=== PATIENT | male | born 1980 | race Caucasian/White ===

== ENCOUNTER 2024-01-17 14:25 | Emergency (ER) | payer SELFPAY ==
[~2024-01-17] VITALS: Ht 182.9 cm; Wt 79.5 kg
[2024-01-17 14:29] VITALS: BP 127/93; PULSE 117; RESP 18; TEMP 99.6; O2SAT 94
[2024-01-17 16:39] LABS: BASOPHILS % (AUTO) 0.2 % (0-1); EOSINOPHILS # (AUTO) 0.1 X10'3 (0-0.9); HEMATOCRIT 44.8 % (42.0-52.0); HEMOGLOBIN 15.5 g/dl (14.0-17.9); LYMPHOCYTES # (AUTO) 1.2 X10'3 (1.1-4.8); LYMPHOCYTES % (AUTO) 14.4 % (21-51); MEAN CORPUSCULAR HEMOGLOBIN 31.2 PG (27.0-31.0); MEAN CORPUSCULAR HGB CONC 34.5 g/dL (33.0-36.5); MEAN CORPUSCULAR VOLUME 90.3 FL (78-98); MEAN PLATELET VOLUME 7.2 FL (7.4-10.4); MONOCYTES # (AUTO) 0.8 X10'3 (0-0.9); MONOCYTES % (AUTO) 9.6 % (2-12); NEUTROPHILS # (AUTO) 6.5 X10'3 (1.8-7.7); NEUTROPHILS % (AUTO) 74.8 % (42-75); PLATELET COUNT 222 X10'3 (140-440); RED BLOOD COUNT 4.96 X10'6 (4.70-6.10); WHITE BLOOD COUNT 8.6 X10'3 (4.5-11.0)
[2024-01-17 16:53] LABS: ALBUMIN 4.1 G/DL (3.4-5.0); ANION GAP 8 (8-16); BLOOD UREA NITROGEN 9 MG/DL (7-18); BUN/CREATININE RATIO 9.9 (10.0-20.0); CALCIUM 9.2 MG/DL (8.5-10.1); CHLORIDE 106 MMOL/L (99-107); CREATININE 0.91 MG/DL (0.60-1.10); GLUCOSE 102 MG/DL (70-104); SODIUM 140 MMOL/L (135-145); TOTAL CARBON DIOXIDE 26.3 MMOL/L (24-32); eCRCL 114 ML/MIN; eGFR > 90 ML/MIN
[2024-01-17 16:57] LABS: ETHANOL < 10 MG/DL (<10)
== END 2024-01-17 19:39 | disposition left against medical advice (07) ==
LOC: ER 14:25
DX: Z13.30 Encounter for screening examination for mental health and behavioral disorders, unspecified (principal); Z53.21 Procedure and treatment not carried out due to patient leaving prior to being seen by health care provider
CPT/HCPCS: 36415; 80048; 80320; 85025

== ENCOUNTER 2024-01-18 22:54 | Inpatient (IN) | payer MEDICARE, MEDICAID ==
[~2024-01-18] VITALS: Ht 185.4 cm; Wt 76.5 kg
[2024-01-19 01:56] LABS: BASOPHILS % (AUTO) 0.5 % (0-1); EOSINOPHILS # (AUTO) 0.3 X10'3 (0-0.9); EOSINOPHILS % (AUTO) 3.3 % (0-6); HEMATOCRIT 41.7 % (42.0-52.0); HEMOGLOBIN 14.5 g/dl (14.0-17.9); LYMPHOCYTES # (AUTO) 1.7 X10'3 (1.1-4.8); LYMPHOCYTES % (AUTO) 20.5 % (21-51); MEAN CORPUSCULAR HEMOGLOBIN 31.3 PG (27.0-31.0); MEAN CORPUSCULAR HGB CONC 34.9 g/dL (33.0-36.5); MEAN CORPUSCULAR VOLUME 89.7 FL (78-98); MEAN PLATELET VOLUME 7.3 FL (7.4-10.4); MONOCYTES # (AUTO) 0.8 X10'3 (0-0.9); MONOCYTES % (AUTO) 10.5 % (2-12); NEUTROPHILS # (AUTO) 5.3 X10'3 (1.8-7.7); NEUTROPHILS % (AUTO) 65.2 % (42-75); PLATELET COUNT 209 X10'3 (140-440); RED BLOOD COUNT 4.65 X10'6 (4.70-6.10); RED CELL DISTRIBUTION WIDTH 13.1 % (11.5-14.5); WHITE BLOOD COUNT 8.1 X10'3 (4.5-11.0)
[2024-01-19 02:05] LABS: ALBUMIN 3.7 G/DL (3.4-5.0); ANION GAP 3 (8-16); BLOOD UREA NITROGEN 10 MG/DL (7-18); BUN/CREATININE RATIO 11.5 (10.0-20.0); CALCIUM 8.8 MG/DL (8.5-10.1); CHLORIDE 105 MMOL/L (99-107); CREATININE 0.87 MG/DL (0.60-1.10); ETHANOL < 10 MG/DL (<10); GLUCOSE 114 MG/DL (70-104); POTASSIUM 3.4 MMOL/L (3.5-5.1); SODIUM 137 MMOL/L (135-145); THYROID STIMULATING HORMONE 2.19 ulU/ml (0.34-4.50); TOTAL CARBON DIOXIDE 28.6 MMOL/L (24-32); eCRCL 118 ML/MIN; eGFR > 90 ML/MIN
[2024-01-19] MEDS ORDERED: HYDR-3927 PO (02:07)
[2024-01-19] MEDS ORDERED: PALI117D IM (02:07)
[2024-01-19] MEDS: potassium Cl 20 mEq SR tablet PO STA (04:06)
[2024-01-19 04:41] LABS: URINE AMPHETAMINE SCREEN NEGATIVE (Neg); URINE BARBITUATE SCREEN NEGATIVE (Neg); URINE BENZODIAZEPINES SCREEN NEGATIVE (Neg); URINE CANNABINOID SCREEN NEGATIVE (Neg); URINE COCAINE SCREEN NEGATIVE (Neg); URINE METHADONE SCREEN NEGATIVE (Neg); URINE OPIATE SCREEN NEGATIVE (Neg); URINE PHENCYCLIDINE SCREEN NEGATIVE (Neg)
[2024-01-19 11:16] LABS: BILIRUBIN,URINE NEGATIVE (Neg); CLARITY,URINE CLEAR (Clear); COLOR,URINE YELLOW (Yellow); GLUCOSE, URINE NEGATIVE (Neg); KETONES,URINE NEGATIVE (Neg); LEUKOCYTE ESTERASE ,URINE NEGATIVE (Neg); NITRITES, URINE NEGATIVE (Neg); OCCULT BLOOD,URINE NEGATIVE (Neg); PROTEIN,URINE NEGATIVE (Neg); UROBILINOGEN,URINE 0.2 E.U/dL (0.2-1.0)
[2024-01-19 11:25] LABS: UA COLLECTION TYPE CLN CATCH MIDSTREAM
[2024-01-19] MEDS ORDERED: magnesium hydroxide 30ml (MOM) UD suspension PO PRN (19:40)
[2024-01-19] MEDS ORDERED: loperamide 2mg capsule PO PRN (19:40)
[2024-01-19] MEDS ORDERED: mag hydrox/Alum hydrox/simeth 30ml oral suspension PO PRN (19:40)
[2024-01-19] MEDS ORDERED: NICOTINE POLACRILEX 2 MG LOZENGE BC PRN (19:40)
[2024-01-19] MEDS ORDERED: acetaminophen 325mg tablet PO PRN (19:40)
[2024-01-19 20:29] VITALS: BP 119/76; PULSE 84; RESP 16; TEMP 98.5; O2SAT 98
[2024-01-19 21:28] VITALS: RESP 16; O2SAT 98
[2024-01-20] MEDS: hydrOXYzine 25 MG tablet PO PRN (04:39)
[2024-01-20] MEDS: OLANZapine 5mg rapidly disint. tablet PO ONE (04:39)
[2024-01-20 07:00] VITALS: RESP 16; O2SAT 94
[2024-01-20 08:00] VITALS: BP 131/88; PULSE 85; RESP 16; TEMP 97.9; O2SAT 94
[2024-01-20] MEDS: nicotine 21mg patch - 24 hr TD SCH (08:00)
[2024-01-20] MEDS: acetaminophen 325mg tablet PO PRN (08:21)
[2024-01-20 09:51] LABS: HEMOGLOBIN A1C 4.8 % (4.5-6.2)
[2024-01-20 09:52] LABS: CHOL/HDL RATIO 4.1 (0.00-4.99); CHOLESTEROL 136 MG/DL (0-200); HDL CHOLESTEROL 33 MG/DL (35-60); LDL CHOLESTEROL 88 MG/DL (50-100); TRIGLYCERIDES 143 MG/DL (20-135)
[2024-01-20] MEDS: LORazepam 1 MG tablet PO STA (10:57)
[2024-01-20] MEDS: OLANZapine 5mg rapidly disint. tablet PO STA (10:57)
[2024-01-20 14:10] LABS: ALBUMIN 3.2 G/DL (3.4-5.0); ANION GAP 8 (8-16); BLOOD UREA NITROGEN 15 MG/DL (7-18); BUN/CREATININE RATIO 16.3 (10.0-20.0); CALCIUM 8.7 MG/DL (8.5-10.1); CHLORIDE 107 MMOL/L (99-107); CREATININE 0.92 MG/DL (0.60-1.10); GLUCOSE 92 MG/DL (70-104); POTASSIUM 3.6 MMOL/L (3.5-5.1); SODIUM 141 MMOL/L (135-145); TOTAL CARBON DIOXIDE 25.7 MMOL/L (24-32); eCRCL 111 ML/MIN; eGFR 89 ML/MIN
[2024-01-20 19:00] VITALS: RESP 15; O2SAT 92
[2024-01-20 19:34] VITALS: BP 107/66; PULSE 90; RESP 15; TEMP 98.7; O2SAT 92
[2024-01-20] MEDS: risperiDONE 0.5mg tablet PO SCH (20:28)
[2024-01-21 07:00] VITALS: RESP 18; O2SAT 95
[2024-01-21 08:00] VITALS: BP 123/83; PULSE 84; RESP 18; TEMP 97.5; O2SAT 95
[2024-01-21] MEDS ORDERED: paliperidone palmitate 156 mg/ml inj.**IM only IM ONE (18:05)
[2024-01-21 19:00] VITALS: RESP 18; O2SAT 95
[2024-01-21 20:00] VITALS: BP 123/83; PULSE 80; RESP 18; TEMP 97.2; O2SAT 96
[2024-01-21] MEDS: paliperidone palmitate inj 234 MG/1.5 ML SYRINGE IM ONE (21:44)
[2024-01-22 07:00] VITALS: BP 114/78; PULSE 90; RESP 16; TEMP 97.8; O2SAT 96
[2024-01-22] MEDS: LORazepam 0.5 MG tablet PO PRN (10:37)
[2024-01-22 10:40] VITALS: RESP 16; O2SAT 96
[2024-01-22 20:30] VITALS: BP 131/87; PULSE 80; RESP 18; TEMP 97.8; O2SAT 96
[2024-01-23 07:00] VITALS: BP 120/76; PULSE 80; RESP 20; TEMP 97.5; O2SAT 97
[2024-01-23] MEDS: PALIPERIDONE 3 MG TAB.ER.24 PO SCH (07:30)
[2024-01-23 20:00] VITALS: BP 115/77; PULSE 84; RESP 18; TEMP 97.9; O2SAT 93
[2024-01-23] MEDS: risperiDONE 0.5mg tablet PO SCH (20:26)
[2024-01-24 07:00] VITALS: BP 122/69; PULSE 67; RESP 16; RESP 18; TEMP 98.2; O2SAT 98
[2024-01-24] MEDS: ibuprofen tablet 400 MG TABLET PO SCH (12:12)
[2024-01-24 19:00] VITALS: BP 115/68; PULSE 83; RESP 14; TEMP 99.6; O2SAT 95
[2024-01-25 07:00] VITALS: RESP 16; O2SAT 96
[2024-01-25 08:00] VITALS: BP 124/78; PULSE 78; RESP 16; TEMP 98; O2SAT 96
[2024-01-25 19:00] VITALS: RESP 14; O2SAT 97
[2024-01-25 20:00] VITALS: BP 115/74; PULSE 66; RESP 14; TEMP 97.7; O2SAT 97
[2024-01-26 07:00] VITALS: RESP 16; O2SAT 96
[2024-01-26 08:00] VITALS: BP 98/49; PULSE 59; RESP 16; TEMP 97.8; O2SAT 96
[2024-01-26 19:00] VITALS: RESP 16; O2SAT 95
[2024-01-26 19:30] VITALS: BP 121/72; PULSE 55; RESP 16; TEMP 99; O2SAT 95
[2024-01-26] MEDS: risperiDONE 0.5mg tablet PO SCH (20:51)
[2024-01-27 07:00] VITALS: RESP 16; O2SAT 96
[2024-01-27 08:00] VITALS: BP 115/75; PULSE 62; RESP 16; TEMP 99; O2SAT 95
[2024-01-27 19:00] VITALS: RESP 15; O2SAT 93
[2024-01-27 19:22] VITALS: BP 118/76; PULSE 77; RESP 15; TEMP 98; O2SAT 93
[2024-01-27] MEDS: risperiDONE 2mg tablet PO SCH (20:18)
[2024-01-28 07:29] VITALS: RESP 16; O2SAT 96
[2024-01-28 08:00] VITALS: BP 127/89; PULSE 79; RESP 18; TEMP 98.2; O2SAT 95
[2024-01-28] MEDS: risperiDONE 0.5mg tablet PO PRN (14:05)
[2024-01-28 19:00] VITALS: RESP 16; O2SAT 96
[2024-01-28 20:00] VITALS: BP 148/87; PULSE 80; RESP 20; TEMP 97.4; O2SAT 95
[2024-01-28] MEDS: risperiDONE 2mg tablet PO SCH (20:49)
[2024-01-29 07:00] VITALS: RESP 16; O2SAT 94
[2024-01-29 08:00] VITALS: BP 129/83; PULSE 78; RESP 16; TEMP 97.9; O2SAT 98
[2024-01-29] MEDS: LORazepam 1 MG tablet PO ONE (16:59)
[2024-01-29 19:02] VITALS: RESP 22; O2SAT 95
[2024-01-29 19:15] VITALS: BP 123/81; PULSE 105; RESP 22; TEMP 98.2; O2SAT 95
[2024-01-29] MEDS: risperiDONE 2mg tablet PO SCH (20:11)
[2024-01-30 07:00] VITALS: RESP 18; O2SAT 96
[2024-01-30 08:00] VITALS: BP 150/93; PULSE 103; RESP 18; TEMP 97.7; O2SAT 96
[2024-01-30 19:00] VITALS: BP 130/80; PULSE 122; RESP 16; TEMP 97.9; O2SAT 97
[2024-01-30 19:35] VITALS: RESP 18; O2SAT 97
[2024-01-30] MEDS: gabapentin 100mg capsule PO SCH (19:59)
[2024-01-31 07:00] VITALS: RESP 16; O2SAT 98
[2024-01-31 08:00] VITALS: BP 107/65; PULSE 62; RESP 16; TEMP 98; O2SAT 95
[2024-01-31 19:00] VITALS: RESP 18; O2SAT 97
[2024-01-31 19:58] VITALS: BP 138/88; PULSE 86; RESP 18; TEMP 97.5; O2SAT 95
[2024-02-01 07:00] VITALS: RESP 18; O2SAT 96
[2024-02-01 08:00] VITALS: BP 123/74; PULSE 91; RESP 18; TEMP 97.6; O2SAT 96
[2024-02-01 19:33] VITALS: RESP 16; O2SAT 94
[2024-02-01 20:00] VITALS: BP 129/92; PULSE 94; RESP 14; TEMP 97.8; O2SAT 94
[2024-02-02 07:01] VITALS: RESP 18; O2SAT 96
[2024-02-02 08:50] VITALS: BP 107/58; PULSE 60; RESP 16; TEMP 98.6; O2SAT 98
[2024-02-02 19:00] VITALS: RESP 15; O2SAT 95
[2024-02-02 20:55] VITALS: BP 129/78; PULSE 75; RESP 14; TEMP 98.2; O2SAT 94
[2024-02-03 07:00] VITALS: RESP 18; O2SAT 96
[2024-02-03 08:00] VITALS: BP 125/89; PULSE 82; RESP 16; TEMP 98.3; O2SAT 92
[2024-02-03 19:58] VITALS: BP 130/89; PULSE 77; RESP 16; TEMP 97.5; O2SAT 96
[2024-02-04 07:00] VITALS: RESP 18; O2SAT 91
[2024-02-04 08:00] VITALS: BP 117/76; PULSE 68; RESP 18; TEMP 98.4; O2SAT 91
[2024-02-04] MEDS: risperiDONE 0.5mg tablet PO SCH (08:13)
[2024-02-04 19:00] VITALS: RESP 16; O2SAT 98
[2024-02-04 20:00] VITALS: BP 112/78; PULSE 75; RESP 16; TEMP 98.2; O2SAT 98
[2024-02-05 07:00] VITALS: RESP 16; O2SAT 62
[2024-02-05 08:00] VITALS: BP 111/73; PULSE 62; RESP 16; TEMP 98.2; O2SAT 97
[2024-02-05] MEDS: LORazepam 1 MG tablet PO ONE (11:02)
[2024-02-05 20:00] VITALS: BP 124/83; PULSE 74; RESP 18; TEMP 98.4; O2SAT 93
[2024-02-06 07:15] VITALS: BP 105/61; PULSE 61; RESP 12; TEMP 97.8; O2SAT 94
[2024-02-06 08:30] VITALS: RESP 12; O2SAT 94
[2024-02-06 08:52] VITALS: RESP 12; O2SAT 94
[2024-02-06 19:00] VITALS: RESP 12; O2SAT 94
[2024-02-06 20:00] VITALS: BP 125/88; PULSE 104; RESP 16; TEMP 98.4; O2SAT 97
[2024-02-07 07:00] VITALS: RESP 16; O2SAT 92
[2024-02-07 08:00] VITALS: BP 126/82; PULSE 60; RESP 16; TEMP 97.7; O2SAT 92
[2024-02-07 19:00] VITALS: BP 118/73; PULSE 75; RESP 16; TEMP 98.7; O2SAT 94
[2024-02-07] MEDS: traZODone 50mg tablet PO PRN (23:16)
[2024-02-08 07:00] VITALS: BP 115/70; PULSE 65; RESP 12; TEMP 98.4; O2SAT 94
[2024-02-08 19:00] VITALS: BP 133/85; PULSE 94; RESP 16; RESP 20; TEMP 98.5; O2SAT 97; O2SAT 99
[2024-02-09 07:00] VITALS: BP 108/65; PULSE 69; RESP 16; TEMP 98.7; O2SAT 95
[2024-02-09 19:00] VITALS: RESP 14; O2SAT 96
[2024-02-09 20:00] VITALS: BP 118/74; PULSE 80; RESP 14; TEMP 98.2; O2SAT 96
[2024-02-10 07:00] VITALS: RESP 16; O2SAT 94
[2024-02-10 08:00] VITALS: BP 112/79; PULSE 75; RESP 16; TEMP 97.9; O2SAT 94
[2024-02-10 19:30] VITALS: BP 126/88; PULSE 87; RESP 14; TEMP 99.5; O2SAT 94
[2024-02-11 07:00] VITALS: RESP 16; O2SAT 96
[2024-02-11 08:47] VITALS: BP 117/74; PULSE 68; RESP 16; TEMP 98.5; O2SAT 94
[2024-02-11 19:00] VITALS: RESP 22; O2SAT 93
[2024-02-11 20:00] VITALS: BP 119/87; PULSE 95; RESP 20; TEMP 97.3; O2SAT 93
[2024-02-12 07:00] VITALS: RESP 12; O2SAT 94
[2024-02-12 07:54] VITALS: BP 122/80; PULSE 80; RESP 12; TEMP 97.7; O2SAT 94
[2024-02-12 19:31] VITALS: BP_SYST 112; BP_SYST 95; BP_DIAS 59; BP_DIAS 84; PULSE 80; PULSE 93; RESP 16; RESP 18; TEMP 98.1; O2SAT 95; O2SAT 97
[2024-02-13 07:00] VITALS: RESP 16; O2SAT 95
[2024-02-13 08:00] VITALS: BP 133/79; PULSE 78; RESP 16; TEMP 98.9; O2SAT 95
[2024-02-13 19:20] VITALS: BP 115/75; PULSE 75; RESP 20; TEMP 98.1; O2SAT 95
[2024-02-13 19:21] VITALS: RESP 20; O2SAT 95
[2024-02-14 07:00] VITALS: RESP 14; O2SAT 95
[2024-02-14 08:00] VITALS: BP 114/67; PULSE 72; RESP 14; TEMP 98.2; O2SAT 95
[2024-02-14] MEDS ORDERED: RISP-32 PO (08:28)
[2024-02-14] MEDS ORDERED: HYDR-3927 PO (08:28)
[2024-02-14] MEDS ORDERED: RISP0.5T74 PO (08:28)
[2024-02-14] MEDS ORDERED: TRAZ-251 PO (08:28)
[2024-02-14] MEDS ORDERED: GABA-530 PO (08:28)
[2024-02-16] MEDS ORDERED: PALIPERIDONE PALMITATE 117 MG IM SCH (02:35)
== END 2024-02-14 11:25 | disposition home or self-care (01) | DRG 885 ==
LOC: ER 22:58 → ED HOLD 01-19 15:15 → ADULT MH 01-19 15:16
PROVIDERS: ADMIT Psychiatry & Neurology Psychiatry; ATTEND Psychiatry & Neurology Psychiatry
PROC: GZHZZZZ Group Psychotherapy (ICD-10-PCS; principal; 2024-01-20)
PROC: GZ51ZZZ Individual Psychotherapy, Behavioral (ICD-10-PCS; 2024-01-20)
DX: F25.9 Schizoaffective disorder, unspecified (principal); Z59.00 Homelessness unspecified; F32.A Depression, unspecified; F17.210 Nicotine dependence, cigarettes, uncomplicated; M72.2 Plantar fascial fibromatosis; Z20.822 Contact with and (suspected) exposure to COVID-19; F41.9 Anxiety disorder, unspecified; K58.9 Irritable bowel syndrome, unspecified; E83.119 Hemochromatosis, unspecified; Z81.8 Family history of other mental and behavioral disorders; Z88.8 Allergy status to other drugs, medicaments and biological substances
CPT/HCPCS: 36415; 80048; 80061; 80305; 80320; 81003; 82728; 83036; 83540; 84443; 85025; 87081; 87811; 99285; J2426; Q0177